=== PATIENT | female | born 1945 | race Two or more races ===

== ENCOUNTER → 2018-01-18 | Emergency (ER) | payer MEDICARE, BC ==
[~2018-01-18] VITALS: Ht 162.6 cm; Wt 68.9 kg
[~2018-01-18] MED LIST: ATORVASTATIN CA20 MG ORAL; Acetaminophen 500mg (ES) tab PO ONE; DONEPEZIL HCL10 MG ORAL; LORAZEPAM1 MG ORAL; NAMENDA10 MG ORAL; ZYPREXA2.5 MG ORAL
[2018-01-18 18:02] VITALS: BP 142/78
[2018-01-18 19:10] VITALS: BP 102/47
--- NOTE | 2018-01-18 19:30 | Emergency Room Report ---
History of Present Illness General Chief Complaint: Upper Extremity Injury Source: Patient, Medical Record Present Illness HPI 72-year-old female presents ED complaining of right arm pain and foot pain status post fall. Per EMS patient had a [facility]itnessed [facility] at [facility] today. Patient states she tripped and fell. History of dementia. Unsure whether she hit her head. Patient complaining of right right pain. Dull, 5/10 , nonradiating. Denies any other injuries. Denies chest pain or shortness of breath. Denies dizziness or weakness. No other aggravating relieving factors. Denies any other associated symptoms Allergies: Coded Allergies: No Known Allergies (Unverified , 01/18/18) Patient History Past Medical History: none Past Surgical History: none Pertinent Family History: none Social History: Denies: smoking, alcohol use, drug use Now: No Immunizations: UTD Reviewed Nursing Documentation: PMH: Agreed, PSxH: Agreed Nursing Documentation-PMH History Of Psychiatric Problem: Yes - depression Hx Neurological Problems: Yes - alzhimers, Review of Systems All Other Systems: negative except mentioned in HPI Physical Exam Vital Signs Date Time Temp Pulse Resp B/P (MAP) Pulse Ox O2 Delivery O2 Flow Rate FiO2 01/18/18 16:57 98.0 68 16 102/60 95 Room Air 98.1 Sp02 EP Interpretation: reviewed, normal General Appearance: no apparent distress, alert, GCS 15, non-toxic Head: normocephalic, atraumatic Eyes: bilateral eye normal inspection, bilateral eye PERRL ENT: hearing grossly normal, normal pharynx, no angioedema, normal voice Neck: full range of motion, supple/symm/no masses Respiratory: chest non-tender, lungs clear, normal breath sounds, speaking full sentences Cardiovascular #1: regular rate, rhythm, no edema Cardiovascular #2: 2+ carotid (R), 2+ carotid (L), 2+ radial (R), 2+ radial (L) , 2+ dorsalis pedis (R), 2+ dorsalis pedis (L) Gastrointestinal: normal bowel sounds, non tender, soft, non-distended, no guarding, no rebound Rectal: deferred Genitourinary: normal inspection, no CVA tenderness Musculoskeletal: back normal, gait/station normal, normal range of motion, non- tender Neurologic: alert, responsive, motor strength/tone normal, sensory intact, speech normal Psychiatric: judgement/insight normal, memory normal, mood/affect normal, no suicidal/homicidal ideation Reflexes: 3+ bicep (R), 3+ bicep (L), 3+ tricep (R), 3+ tricep (L), 3+ knee (R) , 3+ knee (L) Skin: normal color, no rash, warm/dry, well hydrated Lymphatic: no adenopathy Procedures Splinting Splinting : Consent: Verbal Pre-Made Type: sling Medical Decision Making Diagnostic Impression: Primary Impression: Fall Qualified Codes: W19.XXXA - Unspecified fall, initial encounter Additional Impression: Injury of right upper extremity Qualified Codes: S49.91XA - Unspecified injury of right shoulder and upper arm , initial encounter ER Course Hospital Course 72-year-old M presents to ED complaining of R arm and R foot pain s/p trip and fall Differential diagnoses include: Fracture, dislocation, sprain, contusion Clinical course Patient placed on stretcher. After initial history and physical, I ordered pain medications and Xrays. given fall was unwitnessed I also ordered head CT CT head unremarkable Xrays prelim read shows no acute fracture/dislocation. placed in kristin wrap, shoulder sling Diagnosis - fall, injury of upper extremity Stable and discharged to SNF. apply ice, keep elevated. weight bear as tolerated. Followup with PMD. Return to ED if symptoms recur or worsen Other X-Ray Diagnostic Results Other X-Ray Diagnostic Results #1: X-Ray ordered: R shoulder # of Views/Limited Vs Complete: 3 View Indication: Pain EP Interpretation: Yes Interpretation: no dislocation, no soft tissue swelling, no fractures Impression: No acute disease Electronically Signed by: Electronically signed by Dwight Patel MD Other X-Ray Diagnostic Results #2: X-Ray ordered: R humerus # of Views/Limited Vs Complete: 2 View Indication: Pain EP Interpretation: Yes Interpretation: no dislocation, no soft tissue swelling, no fractures Impression: No acute disease Electronically Signed by: Electronically signed by Dwight Patel MD Other X-Ray Diagnostic Results #3: X-Ray ordered: R ankle # of Views/Limited Vs Complete: 3 View Indication: Pain EP Interpretation: Yes Interpretation: no dislocation, no soft tissue swelling, no fractures Impression: No acute disease Electronically Signed by: Electronically signed by Dwight Patel MD Other X-Ray Diagnostic Results #4: X-Ray ordered: R foot # of Views/Limited Vs Complete: 3 View Indication: Pain EP Interpretation: Yes Interpretation: no dislocation, no soft tissue swelling, no fractures Impression: No acute disease Electronically Signed by: Electronically signed by Dwight Patel MD CT/MRI/US Diagnostic Results CT/MRI/US Diagnostic Results : Imaging Test Ordered: CT Head Impression no acute process Last Vital Signs Date Time Temp Pulse Resp B/P (MAP) Pulse Ox O2 Delivery O2 Flow Rate FiO2 01/18/18 19:10 98.0 70 19 102/47 96 Room Air 98.0 Status: improved Disposition: XFER SNF Condition: Stable Patient Instructions: Fall Prevention in Hospitals, Adult DWIGHT PATEL M.D. Jan 18, 2018 19:30
--- NOTE | 2018-01-19 09:58 | Diagnostic Imaging Report ---
Indication: Headache. Head trauma Technique: Contiguous 5 mm thick transaxial imaging of the head obtained in a Siem[employer] Sensation [address] scanner. Soft tissue and bone windows generated. Automatic Exposure Control was utilized. Total Dose length Product (DLP): 1393.[address] Dose Index Volume (CTDIvol): 70.38 mGy Comparison: none Findings: There is mild prominence of the ventricles, basal cisterns, and cerebral sulci consistent with atrophy. Mild, nonspecific, white matter hypoattenuation is noted throughout the brain consistent with chronic small vessel disease. There is no midline shift, edema, acute hemorrhage, mass effect, or abnormal extra-axial fluid collections. Bones and extra osseous soft tissues are unremarkable. Impression: No acute intracranial bleed, mass effect or edema. Mild atrophy of the brain. Nonspecific white matter hypoattenuation probably due to chronic small vessel disease. [facility] has communicated the preliminary results to the Emergency Department. Their findings are largely concordant with this report. The CT scanner at [facility] is accredited by the [employer] and the scans are performed using dose optimization techniques as appropriate to a performed exam including Automatic Exposure control.
--- NOTE | 2018-01-19 10:25 | Diagnostic Imaging Report ---
Indication: Right shoulder pain Findings: 3 views of the right shoulder were obtained. No acute fractures, malalignment, erosions or periostitis are identified. Bones are osteopenic. There is narrowing of the AC joint with mild spur formation. Soft tissues are unremarkable. Impression: Negative for acute injury. AC joint arthrosis
--- NOTE | 2018-01-19 10:25 | Diagnostic Imaging Report ---
Indication: Pain Findings: 2 views of the right humerus were obtained. No acute fractures, malalignment, erosions or periostitis are identified. Bone mineralization is within normal limits. Soft tissues are unremarkable. Impression: Negative examination of the humerus
--- NOTE | 2018-01-19 10:27 | Diagnostic Imaging Report ---
Indication: Pain right ankle Comparison: None Findings: 3 views of the right ankle obtained. No acute fracture, malalignment, periostitis, or osteochondral defects are identified. Soft tissues are unremarkable. Impression: Negative examination
--- NOTE | 2018-01-19 10:27 | Diagnostic Imaging Report ---
Indication: Right foot pain Comparison: None Findings: 3 views of the right foot were obtained. No acute fractures, malalignment, erosions or periostitis are identified. Bones are osteopenic. Soft tissues are unremarkable. Impression: No acute findings.
== END | disposition home or self-care (01) ==
LOC: EDBD 17:01 → EMR 17:30
DX: S49.82XA Other specified injuries of left shoulder and upper arm, initial encounter (principal); W01.0XXA Fall on same level from slipping, tripping and stumbling without subsequent striking against object, initial encounter; Y92.129 Unspecified place in nursing home as the place of occurrence of the external cause; F32.9 Major depressive disorder, single episode, unspecified; G30.9 Alzheimer's disease, unspecified; F02.80 Dementia in other diseases classified elsewhere, unspecified severity, without behavioral disturbance, psychotic disturbance, mood disturbance, and anxiety; R51 Headache; G31.9 Degenerative disease of nervous system, unspecified; M25.571 Pain in right ankle and joints of right foot; M79.671 Pain in right foot; M19.011 Primary osteoarthritis, right shoulder
CPT/HCPCS: 29240; 70450; 99284